=== PATIENT | female | born 1980 | race Caucasian/White ===

== ENCOUNTER → 2020-12-07 | Outpatient (CLI) | payer BC, MEDICARE ==
[~2020-12-07] MED LIST: MACROBID 100 M100 MG PO; PHENERGAN 25 MG25 M1 PO
[2020-12-07 12:12] LABS: HEMOGLOBIN 14.6 gm/dl (12.3-15.3); RED BLOOD COUNT 4.67 M/UL (4.00-5.10); WHITE BLOOD COUNT 9.9 K/UL (4.5-11.0)
[2020-12-07 12:29] LABS: BUN/CREATININE RATIO 16 (0-10)
== END ==
LOC: LAB 10:57
PROVIDERS: Nurse Practitioner Family
DX: K21.9 Gastro-esophageal reflux disease without esophagitis (principal); J30.9 Allergic rhinitis, unspecified; I10 Essential (primary) hypertension; G56.00 Carpal tunnel syndrome, unspecified upper limb; K76.0 Fatty (change of) liver, not elsewhere classified; E78.5 Hyperlipidemia, unspecified; K59.09 Other constipation; E53.8 Deficiency of other specified B group vitamins; E55.9 Vitamin D deficiency, unspecified
CPT/HCPCS: 36415; 80053; 80061; 82607; 84439; 84443; 85025

== ENCOUNTER → 2021-01-03 | Outpatient (CLI) | payer BC, MEDICARE | LOC: HEART 5 08:39 | DX: R00.2 Palpitations (principal); R00.0 Tachycardia, unspecified ==

== ENCOUNTER → 2021-03-12 | Outpatient (CLI) | payer BC, MEDICARE ==
[2021-03-12 14:36] LABS: HEMOGLOBIN 14.5 gm/dl (12.3-15.3); RED BLOOD COUNT 4.61 M/UL (4.00-5.10); WHITE BLOOD COUNT 9.4 K/UL (4.5-11.0)
[2021-03-12 15:20] LABS: BUN/CREATININE RATIO 14 (0-10)
== END ==
LOC: LAB 14:00
PROVIDERS: Nurse Practitioner Family
DX: E78.5 Hyperlipidemia, unspecified (principal); I10 Essential (primary) hypertension; J30.9 Allergic rhinitis, unspecified; R07.9 Chest pain, unspecified; M54.5 Low back pain; G89.29 Other chronic pain; K59.09 Other constipation; K21.9 Gastro-esophageal reflux disease without esophagitis
CPT/HCPCS: 80053; 80061; 84439; 84443; 85025

== ENCOUNTER → 2022-05-30 | Outpatient (CLI) | payer BC, MEDICARE ==
[2022-05-30 10:41] LABS: BUN/CREATININE RATIO 19 (0-10)
== END ==
LOC: LAB 09:00
PROVIDERS: Internal Medicine
DX: E03.9 Hypothyroidism, unspecified (principal); I10 Essential (primary) hypertension
CPT/HCPCS: 36415; 80069; 82533; 84443

== ENCOUNTER → 2022-06-19 | Outpatient (CLI) | payer BC, MEDICARE | LOC: EXRD 08:32 | DX: R05.9 Cough, unspecified (principal) | CPT/HCPCS: 71046 ==